=== PATIENT | female | born 1955 | race African-American/Black ===

== ENCOUNTER 2025-03-26 04:53 | Emergency (ER) | payer MEDICARE, OTHER ==
[~2025-03-26] VITALS: Ht 182.9 cm; Wt 84.0 kg
[2025-03-26] MEDS: HYDROcodone-ACET 5/325MG TAB PO ONE (05:15)
[2025-03-26 05:36] VITALS: PULSE 58; RESP 17; O2SAT 95
--- NOTE | 2025-03-26 05:43 | ED.PDOC ---
History of Present Illness HPI Comments 69 y/o F is BIBA from private residence for c/c left thigh and knee pain, with associated bruising, s/p mechanical slip and fall injury. Significant history of cervical cancer, DM II, and HTN. Patient is reported to have injured herself after losing her balance, while walking through her kitchen, this morning. She is stated to have hit her kitchen wall on the way down before hitting the floor on her left side. No lost of consciousness. No additional injuries or acute symptoms reported at this time. Chief Complaint: Fall Injury Time Seen by MD: 05:10 Primary Care Provider: CORINNA Reviewed Notes: Nurses Notes, Air Traffic Systems Technician Notes Home Meds Active Scripts Hydrocodone-Acetaminophen (Hydrocodone Bitartrate/AC 5-325 mg) 1 Tab Tab, 1 TAB PO BID for 3 Days, #6 TAB Prov:MATT TROTTER MD 03/26/25 Information Source: Patient, Emergency Med Personnel Mode of Arrival: EMS Prehospital treatment: 12 Lead EKG, Accucheck, Uniform Patrol Police Officer, C-Collar Past Medical History PAST MEDICAL HISTORY: Cancer (cervical cancer), DM (type II ), HTN Surgical History: Denies all surgeries GENERALIST History: No Pertinent GENERALIST History Family History Family History: Unobtainable Social History Smoker: Non-Smoker Alcohol: Denies ETOH Use Drugs: Denies Drug Use Lives In: Home All Other Systems: Reviewed and Negative (Comprehensive systems review obtained and negative except for what is stated in the HPI.) Physical Exam General Appearance: Moderate Distress, Normal HEENT: Normal ENT Inspection, Pharynx Normal, TMs Normal Neck: Full Range of Motion, Non-Tender, Normal, Normal Inspection Respiratory: Chest Non-Tender, Lungs Clear, No Accessory Muscle Use, No Respiratory Distress, Normal Breath Sounds Cardiovascular: No Edema, No JVD, No Murmur, No Gallop, Normal Peripheral Pulses, Regular Rate/Rhythm Breast Exam: Deferred Gastrointestinal: No Organomegaly, Non Tender, No Pulsatile Mass, Normal Bowel Sounds, Soft Genitalia: Deferred Pelvic: Deferred Rectal: Deferred Extremities: No calf tenderness, Normal capillary refill, Normal range of motion, Non-tender, No pedal edema, Tender (left thigh and knee ) Musculoskeletal : Location: Left Extremity Location: Knee, Thigh Apperance: Normal, Tenderness Neurologic: Alert, blue prints trimmer II-XII nml as Tested, No Motor Deficits, Normal Affect, Normal Mood, No Sensory Deficits Cerebellar Function: NOT DONE Reflexes: NOT DONE Skin: Bruises (small bruise to left knee ), Dry, Normal Color, Warm Peripheral Pulses: 3+ Radial (R), 3+ Radial (L) Lymphatic: No Adenopathy Was a procedure done? Was a procedure done?: No Differential Dx Considerations may include: fractures, dislocation, sprain, musculoskeletal pain, contusions, among others X-Ray, Labs, Meds, VS Vital Signs Date Time Temp Pulse Resp B/P (MAP) Pulse Ox O2 Delivery O2 Flow Rate FiO2 03/26/25 10:00 60 19 140/71 (94) 97 03/26/25 08:00 84 12 98 Room Air* 0 21 03/26/25 08:00 98.0 84 12 145/67 (93) 98 98.0 03/26/25 08:00 61 03/26/25 06:36 62 17 145/69 (94) 98 03/26/25 05:36 58 17 95 Room Air* 0 21 03/26/25 05:36 98.5 58 17 168/72 (104) 95 98.5 03/26/25 04:58 98.3 22 22 154/85 98 98.3 Current Medications Medications (Trade) Dose Ordered Sig/Manuel Route Start Time Stop Time Status Last Admin Acetaminophen/ Hydrocodone Bitart ([place] 5/325MG Tab) 1 tab ONCE ONCE PO 03/26/25 05:15 03/26/25 05:17 DC 03/26/25 05:15 Patient alert. Status post fall. Vitals stable. Answering questions. Blood pressure within normal limits. Initially elevated Was given pain medication X-rays reviewed does not show any acute process. Was given prescription of [place]. Explained to the family. Was told to follow up with her primary care physician. Was told to come back if there is any problem. Time of 1ST Reevaluation: 05:40 Reevaluation 1ST: Unchanged Patient Education/Counseling: Diagnosis, Treatment Family Education/Counseling: No Family Present Comments Patient is still waiting for x-rays I was signed out to Dr. Trotter Additional Information Previous visits: N/A The following tests were ordered, and results were reviewed by me: CT of left hip w/o contrast, Left femur and knee X-ray Additional Information was gathered from interviewing the following independent historians: EMS I reviewed and agreed with the following test results read by other providers: CT of left hip w/o contrast, Left femur and knee X-ray I discussed treatment and results with medical personnel and: patient SEPSIS Sepsis Screen Date sepsis recognized/suspect: Mar 26, 2025 Time Sepsis recognized/suspect: 050 Recent Procedure: No On Antibiotic Therapy: No Respiratory Rate >20: Yes Heart Rate >90: No Temp<36 C (96.8 F) or >38.3 C: No SBP <90 or MAP <65 mmHG: No New Acute Mental Status Change: No Is the patient on CPAP, BIPAP,: No Physician Orders Ct L Hip With Out Contrast (03/26/25 05:15) L Femur Xray (03/26/25 05:15) L Knee 2v Xray (03/26/25 05:15) Cervical Spine 3v (03/26/25 09:11) Vital Signs Date Time Temp Pulse Resp B/P (MAP) Pulse Ox O2 Delivery O2 Flow Rate FiO2 03/26/25 10:00 60 19 140/71 (94) 97 03/26/25 08:00 84 12 98 Room Air* 0 21 03/26/25 08:00 98.0 84 12 145/67 (93) 98 98.0 03/26/25 08:00 61 03/26/25 06:36 62 17 145/69 (94) 98 03/26/25 05:36 58 17 95 Room Air* 0 21 03/26/25 05:36 98.5 58 17 168/72 (104) 95 98.5 03/26/25 04:58 98.3 22 22 154/85 98 98.3 Departure 1 Departure Time of Disposition: 17:41 Impression: Primary Impression: Knee contusion Qualified Codes: S80.02XA - Contusion of left knee, initial encounter Additional Impression: Degenerative disc disease Qualified Codes: M50.33 - Other cervical disc degeneration, cervicothoracic region Disposition: 01 HOME / SELF CARE / HOMELESS Condition: Good e-Prescriptions Hydrocodone-Acetaminophen (Hydrocodone Bitartrate/AC 5-325 mg) 1 Tab Tab 1 TAB PO BID for 3 Days, #6 TAB Prov: MATT TROTTER MD 03/26/25 Discharged With: Self Critical Care Note Critical Care Time?: No Stability Stability form required: No Heart Score Heart Score: Heart Score Response (Comments) Value History N/A 0 EKG N/A 0 Age N/A 0 Risk Factors N/A 0 Troponin N/A 0 Total 0 I personally scribed for UDAY FERREIRA MD ([email or web address]) on 03/26/25 at 05:43. Electronically submitted by Ranjit Marie ([email or web address]). UDAY FERREIRA MD Mar 26, 2025 05:43 MATT TROTTER MD Mar 26, 2025 10:48
--- NOTE | 2025-03-26 07:41 | DVH ---
CLINICAL INFORMATION: Fall injury. TECHNIQUE: Axial CT images of the left hip were obtained without IV contrast. Coronal and sagittal re formatted images were obtained, reviewed, and stored. All CT scans at this medical facility are perf ormed using dose modulation techniques as appropriate to a performed exam including the following: Au tomated exposure control was utilized; adjustment of the MA and/or KV according to patient size; and use of iterative reconstruction technique. CTDIvol = 25.4 mGy DLP = 851.82 mGy-cm COMPARISON: None FINDINGS: No evidence of acute fracture or dislocation. Wyom-os-syqilwlv arthritic changes in the lef t hip with joint space narrowing and mild subchondral cystic change. Chronic deformity at the left in ferior pubic ramus from old fracture. There are surgical clips in the left hemipelvis. Multiple phle boliths are seen in the pelvis. No other soft tissue abnormality identified on CT. IMPRESSION: 1. No evidence of acute bony abnormality. If there remains clinical suspicion for acute fracture, MRI could be obtained. 2. Arthritic changes and nonacute findings as detailed above.
--- NOTE | 2025-03-26 07:44 | DVH ---
CLINICAL INFORMATION: Fall injury. TECHNIQUE: 2 views of the left femur and 2 views of the left knee were obtained. COMPARISON: CT CT L HIP WITH OUT CONTRAST on DOS: 03/26/25, XR KNEE LEFT 3 VIEW on DOS: 09/01/24 FINDINGS: No acute fracture or dislocation. Gzck-tj-htyrxdhj arthritic changes are seen in the left h ip with joint space narrowing and mild subchondral cystic change. Moderate to severe arthritic change s are seen at the left knee with joint space narrowing, subchondral sclerosis, and marginal osteophyt es. Small joint effusion at the left knee. No significant soft tissue swelling visualized. IMPRESSION: 1. No evidence of acute bony abnormality in the left femur or left knee. 2. Arthritic changes as described above.
[2025-03-26 08:00] VITALS: PULSE 84; RESP 12; TEMP 98; O2SAT 98
[2025-03-26 10:00] VITALS: BP 140/71; PULSE 60; RESP 19; O2SAT 97
--- NOTE | 2025-03-26 10:36 | DVH ---
CLINICAL INFORMATION: 69 years old, Female; fall injury. TECHNIQUE: 3 views of the cervical spine were obtained. COMPARISON: None FINDINGS: C7 vertebral body is obscured on the lateral view. Straightening of the normal cervical ale dosis. No significant spondylolisthesis. Vertebral body heights are maintained. Posterior elements ap pear intact. No evidence of acute fracture. Moderate to severe disc space narrowing at C3-C4 with as sociated endplate sclerosis and endplate spurring. Moderate disc space narrowing at C4-C5 with assoc iated endplate sclerosis and endplate spurring. Prevertebral and paraspinal soft tissues are grossly unremarkable. IMPRESSION: 1. Straightening of the normal cervical lordosis, may be positional or due to muscle spasm. 2. No evidence of acute fracture or spondylolisthesis visualized on radiographs. Correlate with clin ical findings. If there is clinical suspicion for acute fracture, CT could be obtained. 3. Degenerative disc disease in the cervical spine as detailed above. 4. C7 vertebral body is obscured on the lateral view.
[2025-03-26] MEDS ORDERED: HYDR-4902 PO (10:49)
== END 2025-03-26 11:00 | disposition home or self-care (01) ==
LOC: ER 04:53 → EDBD 04:53 → ER 11:00
DX: S80.02XA Contusion of left knee, initial encounter (principal); M50.33 Other cervical disc degeneration, cervicothoracic region; I10 Essential (primary) hypertension; W22.01XA Walked into wall, initial encounter; Y93.89 Activity, other specified; Y92.89 Other specified places as the place of occurrence of the external cause; Y99.8 Other external cause status
CPT/HCPCS: 72040; 73560; 73700